=== PATIENT | male | born 1990 | race Caucasian/White ===

== ENCOUNTER 2019-04-17 10:08 | Emergency (ER) | payer BC, OTHER ==
[2019-04-17] MEDS ORDERED: Fluorescein Opthalmic Strip ONE (10:30)
== END 2019-04-17 10:55 | disposition home or self-care (01) ==
LOC: SCSER 10:08
DX: S05.01XA Injury of conjunctiva and corneal abrasion without foreign body, right eye, initial encounter (principal); W22.8XXA Striking against or struck by other objects, initial encounter
CPT/HCPCS: 99283